=== PATIENT | male | born 1980 | race Caucasian/White ===

== ENCOUNTER → 2016-09-16 | Outpatient (CLI) | payer OTHER ==
[~2016-09-16] MED LIST: ADULT LOW DOSE81 MG OR; APAP500 OR; CLARITIN10 MG PO; FABRAZYME IV; FLONASE NASAL; MEDROLDOSEPACK; MOBIC7.5 MG PO; MULTIVITAMINS PO
[2016-09-16 15:04] VITALS: BP 105/67
== END ==
LOC: OPONC 10:01
DX: E75.21 Fabry (-Anderson) disease (principal)
CPT/HCPCS: 95000; 95001

== ENCOUNTER → 2016-11-13 | Outpatient (CLI) | payer OTHER ==
[2016-11-13 15:00] VITALS: BP 123/65
== END ==
LOC: OPONC 13:10
DX: D50.9 Iron deficiency anemia, unspecified (principal)
CPT/HCPCS: 95000; 95001

== ENCOUNTER → 2016-12-10 | Outpatient (CLI) | payer OTHER ==
[2016-12-10 15:21] VITALS: BP 113/64
== END ==
LOC: OPONC 09:06
DX: E75.21 Fabry (-Anderson) disease (principal)
CPT/HCPCS: 95000

== ENCOUNTER → 2016-12-26 | Outpatient (CLI) | payer OTHER ==
[2016-12-26 16:02] VITALS: BP 117/61
== END ==
LOC: OPONC 07:49
DX: E75.21 Fabry (-Anderson) disease (principal)
CPT/HCPCS: 95000

== ENCOUNTER → 2017-01-17 | Outpatient (CLI) | payer OTHER ==
[2017-01-17 17:41] VITALS: BP 105/62
== END ==
LOC: OPONC 13:05
DX: E75.21 Fabry (-Anderson) disease (principal)
CPT/HCPCS: 95000

== ENCOUNTER → 2017-01-31 | Outpatient (CLI) | payer OTHER ==
[2017-01-31 15:00] VITALS: BP 123/76
== END ==
LOC: OPONC 06:21
DX: E75.21 Fabry (-Anderson) disease (principal)
CPT/HCPCS: 95000

== ENCOUNTER → 2017-02-13 | Outpatient (CLI) | payer OTHER ==
[2017-02-13 15:05] VITALS: BP 106/62
== END ==
LOC: OPONC 11:19
DX: E75.21 Fabry (-Anderson) disease (principal)
CPT/HCPCS: 95000

== ENCOUNTER → 2017-03-03 | Outpatient (CLI) | payer OTHER ==
[2017-03-03 15:29] VITALS: BP 108/76
== END ==
LOC: OPONC 11:47
DX: E75.21 Fabry (-Anderson) disease (principal)
CPT/HCPCS: 95000

== ENCOUNTER → 2017-03-14 | Outpatient (CLI) | payer OTHER ==
[2017-03-14 16:15] VITALS: BP 125/69
== END ==
LOC: OPONC 10:16
DX: D50.9 Iron deficiency anemia, unspecified (principal)
CPT/HCPCS: 95000

== ENCOUNTER → 2017-03-28 | Outpatient (CLI) | payer OTHER ==
[2017-03-28 17:13] VITALS: BP 114/72
== END ==
LOC: OPONC 06:18
DX: E75.21 Fabry (-Anderson) disease (principal)
CPT/HCPCS: 95000

== ENCOUNTER → 2017-04-11 | Outpatient (CLI) | payer OTHER ==
[2017-04-11 14:50] VITALS: BP 99/69
== END ==
LOC: OPONC 06:24
DX: E75.21 Fabry (-Anderson) disease (principal)
CPT/HCPCS: 95000

== ENCOUNTER → 2017-04-24 | Outpatient (CLI) | payer OTHER ==
[2017-04-24 14:15] VITALS: BP 121/64
== END ==
LOC: OPONC 01:25
DX: E75.21 Fabry (-Anderson) disease (principal)
CPT/HCPCS: 95000

== ENCOUNTER → 2017-05-09 | Outpatient (CLI) | payer OTHER ==
[2017-05-09 14:58] VITALS: BP 112/65
== END ==
LOC: OPONC 06:28
DX: E75.21 Fabry (-Anderson) disease (principal)
CPT/HCPCS: 95000

== ENCOUNTER → 2017-05-22 | Outpatient (CLI) | payer OTHER ==
[2017-05-22 15:29] VITALS: BP 125/73
== END ==
LOC: OPONC 08:07
DX: E75.21 Fabry (-Anderson) disease (principal)
CPT/HCPCS: 95000

== ENCOUNTER → 2017-06-05 | Outpatient (CLI) | payer OTHER ==
[2017-06-05 15:05] VITALS: BP 122/77
== END ==
LOC: OPONC 11:19
DX: E75.21 Fabry (-Anderson) disease (principal)
CPT/HCPCS: 95000

== ENCOUNTER → 2017-06-20 | Outpatient (CLI) | payer OTHER ==
[2017-06-20 14:50] VITALS: BP 114/72
== END ==
LOC: OPONC 09:53
DX: E75.21 Fabry (-Anderson) disease (principal)
CPT/HCPCS: 95000

== ENCOUNTER → 2017-07-16 | Outpatient (CLI) | payer OTHER ==
[2017-07-16 14:35] VITALS: BP 126/78
== END ==
LOC: OPONC 06:27
DX: E75.21 Fabry (-Anderson) disease (principal)
CPT/HCPCS: 95000

== ENCOUNTER → 2017-07-31 | Outpatient (CLI) | payer OTHER ==
[2017-07-31 15:00] VITALS: BP 119/73
== END ==
LOC: OPONC 08:39
DX: E75.21 Fabry (-Anderson) disease (principal)
CPT/HCPCS: 95000

== ENCOUNTER → 2017-08-15 | Outpatient (CLI) | payer OTHER ==
[2017-08-15 11:00] VITALS: BP 112/76
== END ==
LOC: OPONC 09:29
DX: E75.21 Fabry (-Anderson) disease (principal)
CPT/HCPCS: 95000

== ENCOUNTER → 2017-09-02 | Outpatient (CLI) | payer OTHER ==
[2017-09-02 15:20] VITALS: BP 105/65
== END ==
LOC: OPONC 10:29
DX: E75.21 Fabry (-Anderson) disease (principal)
CPT/HCPCS: 95000

== ENCOUNTER → 2017-09-11 | Outpatient (CLI) | payer OTHER ==
[2017-09-11 14:50] VITALS: BP 103/68
== END ==
LOC: OPONC 11:32
DX: E75.21 Fabry (-Anderson) disease (principal)
CPT/HCPCS: 95000

== ENCOUNTER → 2017-09-26 | Outpatient (CLI) | payer OTHER ==
[2017-09-26 07:40] VITALS: BP 126/68
== END ==
LOC: OPONC 06:24
DX: E75.21 Fabry (-Anderson) disease (principal)
CPT/HCPCS: 95000

== ENCOUNTER → 2017-10-14 | Outpatient (CLI) | payer OTHER ==
[2017-10-14 12:10] VITALS: BP 110/69
== END ==
LOC: OPONC 11:32
DX: E75.21 Fabry (-Anderson) disease (principal)
CPT/HCPCS: 95000

== ENCOUNTER → 2017-10-23 | Outpatient (CLI) | payer OTHER ==
[2017-10-23 14:40] VITALS: BP 104/60
== END ==
LOC: OPONC 08:19
DX: E75.21 Fabry (-Anderson) disease (principal); R07.1 Chest pain on breathing
CPT/HCPCS: 95000; 95001

== ENCOUNTER → 2017-10-29 | Outpatient (CLI) | payer OTHER | LOC: ULTRA 10:48 | DX: R10.11 Right upper quadrant pain (principal) ==

== ENCOUNTER → 2017-11-05 | Outpatient (CLI) | payer OTHER ==
[2017-11-05 07:30] VITALS: BP 118/63
== END ==
LOC: OPONC 06:10
DX: E75.21 Fabry (-Anderson) disease (principal)
CPT/HCPCS: 95000

== ENCOUNTER → 2017-12-01 | Outpatient (CLI) | payer OTHER ==
[2017-12-01 15:00] VITALS: BP 121/70
== END ==
LOC: OPONC 11:59
DX: E75.21 Fabry (-Anderson) disease (principal)
CPT/HCPCS: 95000

== ENCOUNTER → 2017-12-12 | Outpatient (CLI) | payer OTHER ==
[2017-12-12 13:29] VITALS: BP 127/84
== END ==
LOC: OPONC 00:58
DX: E75.21 Fabry (-Anderson) disease (principal)
CPT/HCPCS: 95000

== ENCOUNTER → 2018-01-15 | Outpatient (CLI) | payer OTHER ==
[2018-01-15 09:10] VITALS: BP 118/69
== END ==
LOC: OPONC 00:45
DX: E75.21 Fabry (-Anderson) disease (principal)
CPT/HCPCS: 95000

== ENCOUNTER → 2018-01-29 | Outpatient (CLI) | payer OTHER ==
[2018-01-29 15:52] VITALS: BP 118/74
== END ==
LOC: OPONC 00:25
DX: E75.21 Fabry (-Anderson) disease (principal)
CPT/HCPCS: 95000

== ENCOUNTER → 2018-02-17 | Outpatient (CLI) | payer OTHER ==
[2018-02-17 15:10] VITALS: BP 122/60
== END ==
LOC: OPONC 06:17
DX: E75.21 Fabry (-Anderson) disease (principal)
CPT/HCPCS: 95000

== ENCOUNTER → 2018-03-03 | Outpatient (CLI) | payer OTHER ==
[2018-03-03 07:45] VITALS: BP 112/69
== END ==
LOC: OPONC 00:41
DX: E75.21 Fabry (-Anderson) disease (principal)
CPT/HCPCS: 95000

== ENCOUNTER → 2018-03-18 | Outpatient (CLI) | payer OTHER ==
[2018-03-18 15:00] VITALS: BP 117/74
== END ==
LOC: OPONC 06:30
DX: E75.21 Fabry (-Anderson) disease (principal)
CPT/HCPCS: 95000

== ENCOUNTER → 2018-04-03 | Outpatient (CLI) | payer OTHER ==
[2018-04-03 14:49] VITALS: BP 114/62
== END ==
LOC: OPONC 08:00
DX: E75.21 Fabry (-Anderson) disease (principal)
CPT/HCPCS: 95000; 95001

== ENCOUNTER → 2018-05-20 | Outpatient (CLI) | payer OTHER ==
[2018-05-20 14:10] VITALS: BP 121/77
== END ==
LOC: OPONC 10:05
DX: E75.21 Fabry (-Anderson) disease (principal)
CPT/HCPCS: 95000; 95001

== ENCOUNTER → 2018-06-08 | Outpatient (CLI) | payer OTHER ==
[2018-06-08 15:45] VITALS: BP 115/70
== END ==
LOC: OPONC 12:03
DX: E75.21 Fabry (-Anderson) disease (principal)
CPT/HCPCS: 95000

== ENCOUNTER → 2018-06-18 | Outpatient (CLI) | payer OTHER ==
[2018-06-18 13:30] VITALS: BP 116/69
== END ==
LOC: OPONC 12:35
DX: E75.21 Fabry (-Anderson) disease (principal)
CPT/HCPCS: 95000; 95001

== ENCOUNTER → 2018-07-03 | Outpatient (CLI) | payer OTHER ==
[2018-07-03 12:28] VITALS: BP 117/51
== END ==
LOC: OPONC 07:15
DX: E75.21 Fabry (-Anderson) disease (principal)
CPT/HCPCS: 95000

== ENCOUNTER → 2018-07-13 | Outpatient (CLI) | payer OTHER ==
[2018-07-13 13:30] VITALS: BP 121/60
== END ==
LOC: OPONC 09:15
DX: E75.21 Fabry (-Anderson) disease (principal)
CPT/HCPCS: 95000; 95001

== ENCOUNTER → 2018-07-31 | Outpatient (CLI) | payer OTHER ==
[2018-07-31 13:30] VITALS: BP 108/65
== END ==
LOC: OPONC 13:07
DX: E75.21 Fabry (-Anderson) disease (principal)
CPT/HCPCS: 95000

== ENCOUNTER → 2018-08-13 | Outpatient (CLI) | payer OTHER ==
[2018-08-13 13:05] VITALS: BP 110/64
--- NOTE | 2018-08-13 14:48 | NUR ---
IN FOR Q2W FABRAZYME INFUSION. REPORTS DOING WELL. NO CONCERNS NOTED. TOLERATED INFUSION WITHOUT INCIDENT. DISMISSED IN STABLE CONDITION.
== END ==
LOC: OPONC 02:54
DX: E75.21 Fabry (-Anderson) disease (principal)
CPT/HCPCS: 95000; 95001

== ENCOUNTER → 2018-08-27 | Outpatient (CLI) | payer OTHER ==
[2018-08-27 13:20] VITALS: BP 133/62
--- NOTE | 2018-08-27 15:00 | NUR ---
HERE FOR Q2W FABRAZYME INFUSION. REPORTS DOING WELL OTHER THAN RECENT UPPER RESP INFECTION, MOSTLY INVOLVING SINUS CONGESTION. TOLERATED TODAY'S INFUSION WITHOUT INCIDENT. DISMISSED IN STABLE CONDITION UPON COMPLETION.
== END ==
LOC: OPONC 10:43
DX: E75.21 Fabry (-Anderson) disease (principal)
CPT/HCPCS: 95000

== ENCOUNTER → 2018-09-15 | Outpatient (CLI) | payer OTHER ==
[2018-09-15 11:50] VITALS: BP 125/76
--- NOTE | 2018-09-15 13:09 | NUR ---
IN FOR Q2WEEK FABRAZYME INFUSION. STATED FEELING WELL. PERIPHERAL IV PLACED. TOLERATED INFUSION WELL WITHOUT INCIDENT. REMOVED IV AND SECURED WITH COBAN. DISMISSED IN GOOD CONDITION.
== END ==
LOC: OPONC 01:15
DX: E75.21 Fabry (-Anderson) disease (principal)
CPT/HCPCS: 95000

== ENCOUNTER → 2018-09-29 | Outpatient (CLI) | payer OTHER ==
[2018-09-29 13:11] VITALS: BP 123/60
--- NOTE | 2018-09-29 14:27 | NUR ---
IN FOR Q2WEEK FABRAZYME INFUSION. STATED FEELING WELL. TOLERATED INFUSION WITHOUT INCIDENT. REMOVED IV AND DISMISSED IN GOOD CONDITION.
== END ==
LOC: OPONC 10:48
DX: E75.21 Fabry (-Anderson) disease (principal)
CPT/HCPCS: 95000

== ENCOUNTER → 2018-10-20 | Outpatient (CLI) | payer OTHER ==
[2018-10-20 14:20] VITALS: BP 112/63
--- NOTE | 2018-10-20 15:24 | NUR ---
IN FOR Q2WEEK FABRAZYME INFUSION. STATED FEELING WELL. TOLERATED INFUSION WELL WITH NO ADVERSE REACTION NOTED. REMOVED IV AND DISMISSED IN GOOD CONDITION.
== END ==
LOC: OPONC 11:41
DX: E75.21 Fabry (-Anderson) disease (principal)
CPT/HCPCS: 95000

== ENCOUNTER → 2018-10-30 | Outpatient (CLI) | payer OTHER ==
[2018-10-30 13:13] VITALS: BP 102/61
--- NOTE | 2018-10-30 14:18 | NUR ---
HERE FOR Q2W FABRAZYME INFUSION. REPORTS DOING WELL, FEELING WELL. TOLERATING INFUSION WITHOUT INCIDENT. WILL CALL WHEN READY TO RETURN.
== END ==
LOC: OPONC 11:50
DX: E75.21 Fabry (-Anderson) disease (principal)
CPT/HCPCS: 95000

== ENCOUNTER → 2018-11-24 | Outpatient (CLI) | payer OTHER ==
[2018-11-24 12:20] VITALS: BP 124/63
--- NOTE | 2018-11-24 14:00 | NUR ---
IN FOR Q2W FABRAZYME INFUSION. REPORTS DOING WELL. MISSED LAST WEEK'S INFUSION HE WAS RECOVERING FROM INFLUENZA. TOLERATED TODAY'S INFUSION WITHOUT INCIDENT. NO S/S REACTION. DISMISSED POST INFUSION IN STABLE CONDITION.
== END ==
LOC: OPONC 11:09
DX: E75.21 Fabry (-Anderson) disease (principal)
CPT/HCPCS: 95000

== ENCOUNTER → 2018-12-03 | Outpatient (CLI) | payer OTHER ==
[2018-12-03 12:05] VITALS: BP 106/57
--- NOTE | 2018-12-03 13:39 | NUR ---
HERE FOR Q2W FABRAZYME INFUSION. IN A BIT EARLY HAD TO MISS A WEEK WHEN SICK IN OCTOBER. PT REPORTS DOING WELL, FEELING WELL. FABRAZYME INFUSED WITHOUT INCIDENT, NO S/S REACTION. DISMISSED IN STABLE CONDITION. WILL CALL WHEN READY TO RETURN.
== END ==
LOC: OPONC 10:52
DX: E75.21 Fabry (-Anderson) disease (principal)
CPT/HCPCS: 95000

== ENCOUNTER → 2018-12-17 | Outpatient (CLI) | payer OTHER ==
[2018-12-17 15:01] VITALS: BP 120/69
--- NOTE | 2018-12-17 15:04 | NUR ---
IN FOR Q2WEEK FABRAZYME INFUSION. STATED FEELING WELL. TOLERATED INFUSION WITHOUT INCIDENT. REMOVED IV AND DISMISSED IN GOOD CONDITION.
== END ==
LOC: OPONC 11:48
DX: E75.21 Fabry (-Anderson) disease (principal)
CPT/HCPCS: 95000

== ENCOUNTER → 2019-01-07 | Outpatient (CLI) | payer OTHER ==
[2019-01-07 14:08] VITALS: BP 117/65
--- NOTE | 2019-01-07 15:30 | NUR ---
IN FOR Q2WEEK FABRAZYME INFUSION. STATED FEELING WELL. TOLERATED INFUSION WITHOUT INCIDENT. REMOVED IV AND DISMISSED IN GOOD CONDITION.
== END ==
LOC: OPONC 11:45
DX: E75.21 Fabry (-Anderson) disease (principal)
CPT/HCPCS: 95000

== ENCOUNTER → 2019-01-21 | Outpatient (CLI) | payer OTHER ==
[~2019-01-21] MED LIST changes: +ZYRTEC10 M5 PO
[2019-01-21 14:25] VITALS: BP 112/67
--- NOTE | 2019-01-21 15:55 | NUR ---
HERE FOR Q2W FABRAZYME INFUSION. REPORTS DOING WELL, FEELING WELL. NO CONCERNS NOTED. TOLERATED INFUSION WITHOUT INCIDENT. DISMISSED IN STABLE CONDITION.
== END ==
LOC: OPONC 12:44
DX: E75.21 Fabry (-Anderson) disease (principal)
CPT/HCPCS: 95000

== ENCOUNTER → 2019-02-04 | Outpatient (CLI) | payer OTHER ==
[2019-02-04 13:20] VITALS: BP 108/66
--- NOTE | 2019-02-04 15:02 | NUR ---
IN FOR Q2W FABRAZYME. REPORTS DOING WELL, FEELING WELL. NO CONCERNS NOTED. TOLERATED THE INFUSION WITHOUT INCIDENT. DISMISSED IN STABLE CONDITION.
== END ==
LOC: OPONC 10:13
DX: E75.21 Fabry (-Anderson) disease (principal)
CPT/HCPCS: 95000

== ENCOUNTER → 2019-02-15 | Outpatient (CLI) | payer OTHER ==
[2019-02-15 15:41] VITALS: BP 117/71
--- NOTE | 2019-02-15 15:44 | NUR ---
IN FOR Q2WEEK FABRAZYME INFUSION FOR FABRY'S DISEASE. STATED FEELING WELL. TOLERATED INFUSION WITHOUT INCIDENT. REMOVED IV AND DISMISSED IN GOOD CONDITION.
== END ==
LOC: OPONC 12:39
DX: E75.21 Fabry (-Anderson) disease (principal)
CPT/HCPCS: 95000

== ENCOUNTER → 2019-03-04 | Outpatient (CLI) | payer OTHER ==
[2019-03-04 17:54] VITALS: BP 112/67
--- NOTE | 2019-03-04 17:57 | NUR ---
IN FOR Q2WEEK FABRAZYME INFUSION FOR FABRY'S DISEASE. STATED FEELING WELL. TOLERATED INFUSION WITHOUT INCIDENT. REMOVED IV AND DISMISSED IN GOOD CONDITION.
== END ==
LOC: OPONC 13:11
DX: E75.21 Fabry (-Anderson) disease (principal)
CPT/HCPCS: 95000

== ENCOUNTER → 2019-03-29 | Outpatient (CLI) | payer OTHER ==
[2019-03-29 13:20] VITALS: BP 118/70
--- NOTE | 2019-03-29 14:55 | NUR ---
HERE FOR Q2W FABRAZYME INFUSION. REPORTS DOING WELL. NO CONCERNS NOTED. TOLERATED INFUSION WITHOUT INCIDENT. DISMISSED IN STABLE CONDITION. WILL CALL WHEN READY TO RETURN.
== END ==
LOC: OPONC 12:06
DX: E75.21 Fabry (-Anderson) disease (principal)
CPT/HCPCS: 95000

== ENCOUNTER → 2019-04-12 | Outpatient (CLI) | payer OTHER ==
[2019-04-12 10:25] VITALS: BP 110/74
--- NOTE | 2019-04-12 11:46 | NUR ---
IN FOR Q2WEEK FABRAZYME INFUSION FOR FABRY'S DISEASE. PATIENT STATED FEELING WELL. DENIED PAIN, SOB. TOLERATED INFUSION WITHOUT INCIDENT. REMOVED IV AND DISMISSED IN GOOD CONDITION.
== END ==
LOC: OPONC 08:53
DX: E75.21 Fabry (-Anderson) disease (principal)
CPT/HCPCS: 95000

== ENCOUNTER → 2019-04-23 | Outpatient (CLI) | payer OTHER ==
[2019-04-23 12:35] VITALS: BP 116/71
--- NOTE | 2019-04-23 14:04 | NUR ---
IN FOR Q2W FABRAZYME INFUSION. REPORTS DOING WELL, FEELING WELL. NO CONCERNS NOTED. TOLERATED INFUSION WITHOUT INCIDENT. DISMISSED IN STABLE CONDITION. WILL CALL WHEN READY TO RETURN.
== END ==
LOC: OPONC 11:43
DX: E75.21 Fabry (-Anderson) disease (principal)
CPT/HCPCS: 95000

== ENCOUNTER → 2019-05-17 | Outpatient (CLI) | payer OTHER ==
[2019-05-17 17:28] VITALS: BP 114/62
--- NOTE | 2019-05-17 17:31 | NUR ---
IN FOR Q2WEEK FABRAZYME INFUSION. STATED FEELING WELL. TOLERATED INFUSION WITHOUT INCIDENT. REMOVED IV AND DISMISSED IN GOOD CONDITION.
== END ==
LOC: OPONC 11:49
DX: E75.21 Fabry (-Anderson) disease (principal)
CPT/HCPCS: 95000

== ENCOUNTER → 2019-05-28 | Outpatient (CLI) | payer OTHER ==
[2019-05-28 15:50] VITALS: BP 105/67
--- NOTE | 2019-05-28 15:52 | NUR ---
IN FOR Q2WEEK FABRAZYME INFUSION FOR FABRY'S DISEASE. STATED FEELING WELL. TOLERATED INFUSION WITHOUT INCIDENT. VITAL SIGNS GOOD. REMOVED IV AND WENT BACK TO WORK IN GOOD CONDITION.
== END ==
LOC: OPONC 10:52
DX: E75.21 Fabry (-Anderson) disease (principal)
CPT/HCPCS: 95000

== ENCOUNTER → 2019-07-02 | Outpatient (CLI) | payer OTHER ==
[2019-07-02 14:50] VITALS: BP 132/55
--- NOTE | 2019-07-02 16:25 | NUR ---
PT HERE FOR Q2W FABRAZYME INFUSION BUT MISSED A COUPLE WEEKS D/T WORK CONFLICTS. REPORTS DOING WELL, NO CONCERNS NOTED. TOLERATED INFUSION WITHOUT INCIDENT. NO S/S REACTION. WILL CALL WHEN READY TO RETURN. DISMISSED IN STABLE CONDITION.
== END ==
LOC: OPONC 12:08
DX: E75.21 Fabry (-Anderson) disease (principal)
CPT/HCPCS: 95000

== ENCOUNTER → 2019-07-26 | Outpatient (CLI) | payer OTHER ==
[2019-07-26 14:10] VITALS: BP 130/70
--- NOTE | 2019-07-26 16:23 | NUR ---
IV THERAPY INFUSION, TOLERATED WELL WITH NO ADVERSE REATIONS. INFUSION COMPLETE AND PERIPHERAL IV REMOVED INTACT.
== END ==
LOC: OPONC 14:05
DX: E75.21 Fabry (-Anderson) disease (principal)
CPT/HCPCS: 95000; 95001

== ENCOUNTER → 2019-08-13 | Outpatient (CLI) | payer OTHER ==
[2019-08-13 15:01] VITALS: BP 106/68
--- NOTE | 2019-08-13 16:06 | NUR ---
IN FOR Q2WEEK FABRAZYME INFUSION. STATED FEELING WELL. TOLERATED INFUSION WITHOUT INCIDENT. REMOVED IV AND DISMISSED IN GOOD CONDITION.
== END ==
LOC: OPONC 08:57
DX: E75.21 Fabry (-Anderson) disease (principal)
CPT/HCPCS: 95000

== ENCOUNTER → 2019-08-27 | Outpatient (CLI) | payer OTHER ==
[2019-08-27 16:18] VITALS: BP 120/70
--- NOTE | 2019-08-27 16:20 | NUR ---
IN FOR Q2WEEK FABRAZYME INFUSION FOR FABRY'S DISEASE. STATED FEELING WELL. TOLERATED INFUSION WITHOUT INCIDENT. REMOVED IV AND DISMISSED IN GOOD CONDITION.
== END ==
LOC: OPONC 12:44
DX: E75.21 Fabry (-Anderson) disease (principal)
CPT/HCPCS: 95000

== ENCOUNTER → 2019-09-17 | Outpatient (CLI) | payer OTHER ==
[2019-09-17 14:03] VITALS: BP 117/79
--- NOTE | 2019-09-17 15:24 | NUR ---
IN FOR Q2WEEK FABRAZYME INFUSION. STATED FEELING WELL. TOLERATED INFUSION WITHOUT INCIDENT. REMOVED IV AND DISMISSED IN GOOD CONDITION.
== END ==
LOC: OPONC 10:12
DX: E75.21 Fabry (-Anderson) disease (principal)
CPT/HCPCS: 95000

== ENCOUNTER → 2019-10-08 | Outpatient (CLI) | payer OTHER ==
[2019-10-08 12:49] VITALS: BP 131/76
--- NOTE | 2019-10-08 15:07 | NUR ---
IN FOR Q2WEEK FABRAZYME INFUSION. STATED FEELING WELL. TOLERATED INFUSION WELL. REMOVED IV AND DISMISSED IN GOOD CONDITION.
== END ==
LOC: OPONC 09:23
DX: E75.21 Fabry (-Anderson) disease (principal)
CPT/HCPCS: 95000

== ENCOUNTER → 2019-10-25 | Outpatient (CLI) | payer OTHER ==
[2019-10-25 15:34] VITALS: BP 117/72
--- NOTE | 2019-10-25 15:37 | NUR ---
IN FOR Q2WEEK FABRAZYME INFUSION. STATED FEELING WELL. TOLERATED INFUSION WITHOUT INCIDENT. TO RETURN IN 2 WEEKS FOR NEXT INFUSION. DISMISSED IN GOOD CONDITION.
== END ==
LOC: OPONC 08:46
DX: E75.21 Fabry (-Anderson) disease (principal)
CPT/HCPCS: 95000

== ENCOUNTER → 2019-11-05 | Outpatient (CLI) | payer OTHER ==
[2019-11-05 14:25] VITALS: BP 129/68
--- NOTE | 2019-11-05 16:14 | NUR ---
IN FOR Q2WEEK FABRAZYME INFUSION. STATED FEELING WELL. TOLERATED INFUSION WITHOUT INCIDENT. DISMISSED IN GOOD CONDITION.
== END ==
LOC: OPONC 12:37
DX: E75.21 Fabry (-Anderson) disease (principal)
CPT/HCPCS: 95000

== ENCOUNTER → 2019-11-22 | Outpatient (CLI) | payer OTHER ==
[2019-11-22 13:15] VITALS: BP 127/80
--- NOTE | 2019-11-22 14:46 | NUR ---
IN FOR Q2WEEK FABRAZYME INFUSION. STATED FEELING WELL. VITAL SIGNS GOOD. TOLERATED INFUSION WITHOUT INCIDENT. DISMISSED IN GOOD CONDITION.
== END ==
LOC: OPONC 11:17
DX: E75.21 Fabry (-Anderson) disease (principal)
CPT/HCPCS: 95000

== ENCOUNTER → 2019-12-10 | Outpatient (CLI) | payer OTHER ==
[2019-12-10 13:01] VITALS: BP 116/76
--- NOTE | 2019-12-10 13:16 | NUR ---
IN FOR Q2WEEK FABRAZYME INFUSION. STATED FEELING WELL. TOLERATED INFUSION WITHOUT INCIDENT. REMOVED IV AND DISMISSED IN GOOD CONDITION.
== END ==
LOC: OPONC 10:43
DX: E75.21 Fabry (-Anderson) disease (principal)
CPT/HCPCS: 95000

== ENCOUNTER → 2019-12-30 | Outpatient (CLI) | payer OTHER ==
[2019-12-30 13:57] VITALS: BP 124/82
--- NOTE | 2019-12-30 13:59 | NUR ---
IN FOR Q2WEEK FABRAZYME INFUSION. STATED FEELING WELL. TOLERATED INFUSION WITHOUT INCIDENT. DISMISSED IN GOOD CONDITION.
== END ==
LOC: OPONC 11:35
DX: E75.21 Fabry (-Anderson) disease (principal)
CPT/HCPCS: 95000

== ENCOUNTER → 2020-01-14 | Outpatient (CLI) | payer OTHER ==
[2020-01-14 13:09] VITALS: BP 124/77
--- NOTE | 2020-01-14 13:58 | NUR ---
IN FOR Q2WEEK FABRAZYME INFUSION. STATED FEELING WELL. TOLERATED INFUSION WITHOUT INCIDENT. DISMISSED IN GOOD CONDITION.
== END ==
LOC: OPONC 11:34
DX: E75.21 Fabry (-Anderson) disease (principal)
CPT/HCPCS: 95000

== ENCOUNTER → 2020-01-28 | Outpatient (CLI) | payer OTHER ==
[2020-01-28 11:45] VITALS: BP 118/76
--- NOTE | 2020-01-28 12:42 | NUR ---
IN FOR Q2WEEK FABRAZYME INFUSION. STATED FEELING WELL. TOLERATED INFUSION WITHOUT INCIDENT. REMOVED IV AND DISMISSED IN GOOD CONDITION.
== END ==
LOC: OPONC 09:03
DX: E75.21 Fabry (-Anderson) disease (principal)
CPT/HCPCS: 95000

== ENCOUNTER → 2020-02-11 | Outpatient (CLI) | payer OTHER ==
[2020-02-11 10:15] VITALS: BP 139/70
[2020-02-11 11:48] VITALS: BP 126/78
--- NOTE | 2020-02-11 12:48 | NUR ---
HERE FOR Q2W FABRAZYME INFUSION. REPORTS DOING WELL, NO CONCERNS. TOLERATED INFUSION WITHOUT INCIDENT, NO S/S REACTION. DISMISSED IN STABLE CONDITION.
== END ==
LOC: OPONC 09:25
PROVIDERS: ATTEND Family Medicine
DX: E75.21 Fabry (-Anderson) disease (principal)
CPT/HCPCS: 95000; 95001

== ENCOUNTER → 2020-02-18 | Outpatient (CLI) | payer OTHER ==
[2020-02-18 11:20] LABS: ABSOLUTE NEUTROPHILS 2.6 thou/uL (1.4-8.2); EOSINOPHILS 1.8 % (0.0-3.0); HEMATOCRIT 43.3 % (42.0-52.0); HEMOGLOBIN 14.8 gm/dL (14.0-18.0); LYMPHOCYTES 37.5 % (24.0-44.0); MCH 29.6 pg (26.0-34.0); MCHC 34.2 g/dL (28.0-37.0); MCV 86.5 fL (80.0-100.0); PLATELET COUNT 249 thou/uL (150-400); POLYS 51.7 % (36.0-66.0); RDW 12.6 % (10.5-14.5); WBC 5.1 thou/uL (4.0-11.0)
[2020-02-18 11:34] LABS: ALBUMIN 4.4 g/dL (3.4-5.0); ANION GAP 6 mmol/L (7-16); BUN 13 mg/dL (7-18); CALCIUM 9.3 mg/dL (8.5-10.1); CHLORIDE 101 mmol/L (98-107); CHOLESTEROL 216 mg/dL (<200); CO2 29 mmol/L (21-32); GLUCOSE 91 mg/dL (74-106); HDL CHOLESTEROL 59 mg/dL (>40); LDL CHOLESTEROL 145 mg/dL (<100); POTASSIUM 4.3 mmol/L (3.5-5.1); SGOT 21 U/L (15-37); SGPT 25 U/L (30-65); SODIUM 136 mmol/L (136-145); TC:HDL 3.7 Ratio (Not establshd); TOTAL BILIRUBIN 0.9 mg/dL (0.2-1.0); TOTAL PROTEIN 7.4 g/dL (6.4-8.2); TRIGLYCERIDE 61 mg/dL (<150); VLDL 12 mg/dL (<40)
[2020-02-18 12:13] LABS: URINE BILIRUBIN NEGATIVE (Negative); URINE BLOOD TRACE (Negative); URINE CLARITY CLEAR; URINE COLOR YELLOW; URINE GLUCOSE-RANDOM* NEGATIVE (Negative); URINE KETONES NEGATIVE (Negative); URINE LEUKOCYTES-REFLEX NEGATIVE (Negative); URINE NITRITE-REFLEX NEGATIVE (Negative); URINE PROTEIN (DIPSTICK) NEGATIVE (Negative); URINE SPECIFIC GRAVITY >= 1.030 (1.005-1.035); URINE UROBILINOGEN 0.2 E.U./dl (0.2-1.0)
== END ==
LOC: LAB 02-17 13:59
PROVIDERS: ATTEND Family Medicine
DX: Z00.00 Encounter for general adult medical examination without abnormal findings (principal)

== ENCOUNTER → 2020-02-22 | Outpatient (CLI) | payer OTHER ==
[2020-02-22 16:02] VITALS: BP 118/63
--- NOTE | 2020-02-22 16:06 | NUR ---
IN FOR Q2WEEK FABRAZYME INFUSION FOR FABRY'S DISEASE. STATED FEELING WELL. TOLERATED INFUSION WITHOUT INCIDENT. REMOVED IV AND DISMISSED IN GOOD CONDITION.
== END ==
LOC: OPONC 10:01
PROVIDERS: ATTEND Family Medicine
DX: E75.21 Fabry (-Anderson) disease (principal)
CPT/HCPCS: 95000

== ENCOUNTER → 2020-03-16 | Outpatient (CLI) | payer OTHER ==
[2020-03-16 16:08] VITALS: BP 117/79
--- NOTE | 2020-03-16 16:11 | NUR ---
IN FOR Q2WEEK FABRAZYME INFUSION. STATED FEELING WELL. IV STARTED IN RAC. TOLERATED INFUSION WITHOUT INCIDENT. REMOVED IV AND DISMISSED IN GOOD CONDITION.
== END ==
LOC: OPONC 09:20
PROVIDERS: ATTEND Family Medicine
DX: E75.21 Fabry (-Anderson) disease (principal)
CPT/HCPCS: 95000

== ENCOUNTER → 2020-04-07 | Outpatient (CLI) | payer OTHER ==
--- NOTE | 2020-04-07 16:22 | NUR ---
IN FOR Q2WEEK FABRAZYME INFUSION. STATED FEELING WELL. IV STARTED AND TOLERATED INFUSION WELL. REMOVED IV AND DISMISSED IN GOOD CONDITION.
== END ==
LOC: OPONC 09:13
PROVIDERS: ATTEND Family Medicine
DX: E75.21 Fabry (-Anderson) disease (principal)
CPT/HCPCS: 95000

== ENCOUNTER → 2020-04-21 | Outpatient (CLI) | payer OTHER ==
[2020-04-21 13:57] VITALS: BP 112/67
--- NOTE | 2020-04-21 15:25 | NUR ---
HERE FOR Q2W FABRAZYME INFUSION. REPORTS DOING WELL. INFUSION COMPLETED WITHOUT INCIDENT. DISMISSED IN STABLE CONDITION. WILL CALL WHEN READY TO SCHEDULE NEXT VISIT.
== END ==
LOC: OPONC 10:35
PROVIDERS: ATTEND Family Medicine
DX: E75.21 Fabry (-Anderson) disease (principal)
CPT/HCPCS: 95000

== ENCOUNTER → 2020-05-02 | Outpatient (CLI) | payer OTHER | LOC: LAB 14:01 | PROVIDERS: ATTEND Nurse Practitioner | DX: Z20.828 Contact with and (suspected) exposure to other viral communicable diseases (principal) ==

== ENCOUNTER → 2020-05-10 | Outpatient (CLI) | payer OTHER ==
[2020-05-10 12:10] VITALS: BP 113/74
--- NOTE | 2020-05-10 13:45 | NUR ---
HERE FOR Q2W PROLASTIN C INFUSION. REPORTS DOING WELL, FEELING WELL. NO CONCERNS NOTED. TOLERATED INFUSION WITHOUT INCIDENT. DISMISSED IN STABLE CONDITION.
== END ==
LOC: OPONC 08:52
PROVIDERS: ATTEND Family Medicine
DX: E75.21 Fabry (-Anderson) disease (principal)
CPT/HCPCS: 95000

== ENCOUNTER → 2020-05-24 | Outpatient (CLI) | payer OTHER ==
[2020-05-24 09:20] VITALS: BP 110/65
--- NOTE | 2020-05-24 10:43 | NUR ---
HERE FOR Q2W FABRAZYME INFUSION. REPORTS DOING WELL, FEELING WELL. NO CONCERNS NOTED. TOLERATED INFUSION WITHOUT INCIDENT.
== END ==
LOC: OPONC 09:27
PROVIDERS: ATTEND Family Medicine
DX: E75.21 Fabry (-Anderson) disease (principal)
CPT/HCPCS: 95000

== ENCOUNTER → 2020-06-14 | Outpatient (CLI) | payer OTHER ==
[2020-06-14 13:15] VITALS: BP 110/66
--- NOTE | 2020-06-14 14:58 | NUR ---
HERE FOR Q2W FABRAZYME INFUSION. REPORTS DOING WELL, FEELING WELL. NO CONCERNS NOTED. TOLERATED INFUSION WITHOUT INCIDENT. DISMISSED IN STABLE CONDITION.
== END ==
LOC: OPONC 12:49
PROVIDERS: ATTEND Family Medicine
DX: E75.21 Fabry (-Anderson) disease (principal)
CPT/HCPCS: 95000

== ENCOUNTER → 2020-06-28 | Outpatient (CLI) | payer OTHER ==
[2020-06-28 10:15] VITALS: BP 116/68
--- NOTE | 2020-06-28 11:48 | NUR ---
HERE FOR Q2W FABRAZYME INFUSION. REPORTS DOING WELL. TOLERATED INFUSION WITHOUT INCIDENT. DISMISSED IN STABLE CONDITION.
== END ==
LOC: OPONC 06:36
PROVIDERS: ATTEND Family Medicine
DX: E75.21 Fabry (-Anderson) disease (principal)
CPT/HCPCS: 95000

== ENCOUNTER → 2020-07-12 | Outpatient (CLI) | payer OTHER ==
[2020-07-12 09:05] VITALS: BP 115/72
--- NOTE | 2020-07-12 11:08 | NUR ---
HERE FOR Q2W FABRAZYME INFUSION. REPORTS DOING WELL, FEELING WELL. NO CONCERNS NOTED. TOLERATED INFUSION WITHOUT INCIDENT. DISMISSED IN STABLE CONDITION.
== END ==
LOC: OPONC 07:46
PROVIDERS: ATTEND Family Medicine
DX: E75.21 Fabry (-Anderson) disease (principal)
CPT/HCPCS: 95000; 95001

== ENCOUNTER → 2020-07-26 | Outpatient (CLI) | payer OTHER ==
[2020-07-26 12:57] VITALS: BP 128/71
--- NOTE | 2020-07-26 14:30 | NUR ---
HERE FOR Q2W FABRAZYME INFUSION. REPORTS DOING WELL, FEELING WELL. NO NEW CONCERNS. TOLERATED INFUSION WITHOUT INCIDENT. WILL CALL WHEN READY TO RETURN.
== END ==
LOC: OPONC 12:02
PROVIDERS: ATTEND Family Medicine
DX: E75.21 Fabry (-Anderson) disease (principal)
CPT/HCPCS: 95000; 95001

== ENCOUNTER → 2020-08-09 | Outpatient (CLI) | payer OTHER ==
[2020-08-09 09:46] VITALS: BP 115/72
--- NOTE | 2020-08-09 11:11 | NUR ---
HERE FOR Q2W FABRAZYME INFUSION. REPORTS DOING WELL. NO CONCERNS NOTED. TOLERATED INFUSION WITHOUT INCIDENT. DISMISSED IN STABLE CONDITION.
== END ==
LOC: OPONC 11:13
PROVIDERS: ATTEND Family Medicine
DX: E75.21 Fabry (-Anderson) disease (principal)
CPT/HCPCS: 95000

== ENCOUNTER → 2020-08-28 | Outpatient (CLI) | payer OTHER ==
[2020-08-28 09:10] VITALS: BP 101/67
--- NOTE | 2020-08-28 13:12 | NUR ---
HERE FOR Q2W FABRAZYME INFUSION. REPORTS DOING WELL, FEELING WELL. NO CONCERNS NOTED. TOLERATED INFUSION WITHOUT INCIDENT. DISMISSED IN STABLE CONDITION.
== END ==
LOC: OPONC 08:06
PROVIDERS: ATTEND Family Medicine
DX: E75.21 Fabry (-Anderson) disease (principal)
CPT/HCPCS: 95000

== ENCOUNTER → 2020-09-15 | Outpatient (CLI) | payer OTHER ==
[2020-09-15 15:04] VITALS: BP 112/71
--- NOTE | 2020-09-15 15:06 | NUR ---
IN FOR Q2WEEK FABRAZYME INFUSION FOR FABRY'S DISEASE. PATIENT STATED FEELING WELL. VITAL SIGNS GOOD. TOLERATED INFUSION WITHOUT INCIDENT. REMOVED IV AND DISMISSED IN GOOD CONDITION.
== END ==
LOC: OPONC 09:33
PROVIDERS: ATTEND Family Medicine
DX: E75.21 Fabry (-Anderson) disease (principal)
CPT/HCPCS: 95000

== ENCOUNTER → 2020-09-29 | Outpatient (CLI) | payer OTHER ==
[2020-09-29 11:30] VITALS: BP 123/76
--- NOTE | 2020-09-29 13:00 | NUR ---
IN FOR Q2 WEEK FABRAZYME INFUSION FOR FABRY'S DISEASE. STATED FEELING WELL. TOLERATED INFUSION WITHOUT INCIDENT. REMOVED IV AND DISMISSED IN GOOD CONDITION.
== END ==
LOC: OPONC 08:45
PROVIDERS: ATTEND Family Medicine
DX: E75.21 Fabry (-Anderson) disease (principal)
CPT/HCPCS: 95000

== ENCOUNTER → 2020-10-13 | Outpatient (CLI) | payer OTHER ==
[2020-10-13 14:15] VITALS: BP 124/76
--- NOTE | 2020-10-13 15:37 | NUR ---
IN FOR Q2WEEK FABRAZYME INFUSION FOR FABRY'S DISEASE. STATED FEELING WELL. IV PLACED IN RAC. TOLERATED INFUSION WITHOUT INCIDENT. REMOVED IV AND DISMISSED IN GOOD CONDITION.
== END ==
LOC: OPONC 11:52
PROVIDERS: ATTEND Family Medicine
DX: E75.21 Fabry (-Anderson) disease (principal)
CPT/HCPCS: 95000

== ENCOUNTER → 2020-11-13 | Outpatient (CLI) | payer OTHER ==
[2020-11-13 12:53] VITALS: BP 122/62
--- NOTE | 2020-11-13 13:53 | NUR ---
PATIENT IN FOR FABRAZYME INFUSION. TOLERATED INFUSION WITHOUT ADVERSE REACTION. DC AMBULATORY IN STABLE CONDITION.
== END ==
LOC: OPONC 11:05
PROVIDERS: ATTEND Family Medicine
DX: E75.21 Fabry (-Anderson) disease (principal)
CPT/HCPCS: 95000

== ENCOUNTER → 2020-11-22 | Outpatient (CLI) | payer OTHER ==
[2020-11-22 11:35] VITALS: BP 142/81
--- NOTE | 2020-11-22 13:16 | NUR ---
HERE FOR Q2W FABRAZYME INFUSION. REPORTS DOING WELL, FEELING WELL. NO CONCERNS NOTED. TOLERATED INFUSION WITHOUT INCIDENT. DISMISSED IN STABLE CONDITION. WILL CALL WHEN READY TO RETURN.
== END ==
LOC: OPONC 10:19
PROVIDERS: ATTEND Family Medicine
DX: E75.21 Fabry (-Anderson) disease (principal)
CPT/HCPCS: 95000

== ENCOUNTER → 2020-12-04 | Outpatient (CLI) | payer OTHER ==
[2020-12-04 12:38] VITALS: BP 119/79
--- NOTE | 2020-12-04 12:41 | NUR ---
IN FOR Q2WEEK FABRAZYME INFUSION FOR FABRY'S DISEASE. STATED FEELING WELL. IV PLACED IN LAC WITHOUT DIFFICULTY. TOLERATED INFUSION WITHOUT INCIDENT. REMOVED IV AND DISMISSED IN GOOD CONDITION.
== END ==
LOC: OPONC 10:04
PROVIDERS: ATTEND Family Medicine
DX: E75.21 Fabry (-Anderson) disease (principal)
CPT/HCPCS: 95000

== ENCOUNTER → 2020-12-18 | Outpatient (CLI) | payer OTHER | LOC: LAB 11:54 | PROVIDERS: ATTEND Nurse Practitioner | DX: R05 Cough (principal); R50.9 Fever, unspecified; J02.9 Acute pharyngitis, unspecified; Z20.822 Contact with and (suspected) exposure to COVID-19 ==

== ENCOUNTER → 2020-12-27 | Outpatient (CLI) | payer OTHER ==
[2020-12-27 13:08] VITALS: BP 122/72
--- NOTE | 2020-12-27 14:45 | NUR ---
HERE FOR Q2W FABRAZYME INFUSION. REPORTS DOING WELL, FEELING WELL. NO CONCERNS NOTED. TOLERATED INFUSION WITHOUT INCIDENT. DISMISSED IN STABLE CONDITION. WILL CALL WHEN READY TO RETURN.
== END ==
LOC: OPONC 10:46
PROVIDERS: ATTEND Family Medicine
DX: E75.21 Fabry (-Anderson) disease (principal)
CPT/HCPCS: 95000; 95001

== ENCOUNTER → 2021-01-10 | Outpatient (CLI) | payer OTHER ==
[2021-01-10 16:32] VITALS: BP 114/73
--- NOTE | 2021-01-10 16:38 | NUR ---
ARRIVED AMBULATORY FOR FABRYZYME INFUSION. STATES HE IS FEELING WELL. DENIES PAIN AND VOICES NO COMPLAINTS. INFUSION TOLERATED WELL AND PATIENT DC IN STABLE CONDITION. WILL CALL [facility] FOR NEXT INFUSION.
== END ==
LOC: OPONC 12:18
PROVIDERS: ATTEND Family Medicine
DX: E75.21 Fabry (-Anderson) disease (principal)
CPT/HCPCS: 95000; 95001

== ENCOUNTER → 2021-02-07 | Outpatient (CLI) | payer OTHER ==
[2021-02-07 10:00] VITALS: BP 116/79
--- NOTE | 2021-02-07 11:20 | NUR ---
HERE FOR HIS Q2W FABRAZYME INFUSION. REPORTS DOING VERY WELL. NO CONCERNS NOTED. TOLERATED INFUSION WITHOUT INCIDENT. DISMISSED IN STABLE CONDITION. WILL CALL TO SCHEDULED WHEN ABLE TO RETURN.
== END ==
LOC: OPONC 10:30
PROVIDERS: ATTEND Family Medicine
DX: E75.21 Fabry (-Anderson) disease (principal)
CPT/HCPCS: 95000; 95001

== ENCOUNTER → 2021-02-21 | Outpatient (CLI) | payer OTHER ==
[2021-02-21 11:00] VITALS: BP 116/73
--- NOTE | 2021-02-21 17:20 | NUR ---
HERE FOR Q2W FABRAZYME INFUSION. REPORTS DOING WELL. TOLERATED INFUSION WITHOUT INCIDENT. DISMISSED IN STABLE CONDITION.
== END ==
LOC: OPONC 12:57
PROVIDERS: ATTEND Family Medicine
DX: E75.21 Fabry (-Anderson) disease (principal)
CPT/HCPCS: 95000; 95001

== ENCOUNTER → 2021-02-27 | Outpatient (CLI) | payer OTHER | LOC: MRI 07:51 | PROVIDERS: ATTEND Family Medicine | DX: M54.6 Pain in thoracic spine (principal) ==

== ENCOUNTER → 2021-03-07 | Outpatient (CLI) | payer OTHER ==
[2021-03-07 09:25] VITALS: BP 114/70
--- NOTE | 2021-03-07 10:55 | NUR ---
HERE FOR Q2W FABRAZYME INFUSION. REPORTS DOING WELL, FEELING WELL OTHER THAN SOME NEWER LOW BACK PAIN ISSUES AND ONGOING L SHOULDER DISCOMFORT. SAW DR. CASTRO FOR BOTH WITH IMAGING DONE. PLANS TO PURSUE PHYSICAL THERAPY. TOLERATED TODAY'S INFUSION WITHOUT INCIDENT. DISMISSED IN STABLE CONDITION. WILL CALL WHEN READY TO RESCHEDULE.
== END ==
LOC: OPONC 08:28
PROVIDERS: ATTEND Family Medicine
DX: E75.21 Fabry (-Anderson) disease (principal)
CPT/HCPCS: 95000; 95001

== ENCOUNTER → 2021-03-09 | Outpatient (CLI) | payer OTHER ==
[2021-03-09 09:29] LABS: ABSOLUTE NEUTROPHILS 3.3 thou/uL (1.4-8.2); BASOPHILS 0.6 % (0.0-2.0); EOSINOPHILS 2.1 % (0.0-3.0); HEMATOCRIT 39.3 % (42.0-52.0); HEMOGLOBIN 13.5 gm/dL (14.0-18.0); LYMPHOCYTES 28.8 % (24.0-44.0); MCH 29.6 pg (26.0-34.0); MCHC 34.3 g/dL (28.0-37.0); MCV 86.1 fL (80.0-100.0); MONOCYTES 7.2 % (1.0-8.0); PLATELET COUNT 248 thou/uL (150-400); POLYS 61.3 % (36.0-66.0); RBC 4.56 mil/uL (4.50-6.00); RDW 12.7 % (10.5-14.5); WBC 5.3 thou/uL (4.0-11.0)
[2021-03-09 09:31] LABS: URINE BILIRUBIN NEGATIVE (Negative); URINE BLOOD NEGATIVE (Negative); URINE CLARITY CLEAR; URINE COLOR YELLOW; URINE GLUCOSE-RANDOM* NEGATIVE (Negative); URINE KETONES NEGATIVE (Negative); URINE LEUKOCYTES-REFLEX NEGATIVE (Negative); URINE NITRITE-REFLEX NEGATIVE (Negative); URINE PROTEIN (DIPSTICK) NEGATIVE (Negative); URINE SPECIFIC GRAVITY <= 1.005 (1.005-1.035); URINE UROBILINOGEN 0.2 E.U./dl (0.2-1.0)
[2021-03-09 10:11] LABS: ALBUMIN 4.1 g/dL (3.4-5.0); ANION GAP 6 mmol/L (7-16); BUN 15 mg/dL (7-18); CALCIUM 9.3 mg/dL (8.5-10.1); CHLORIDE 105 mmol/L (98-107); CHOLESTEROL 217 mg/dL (<200); CO2 29 mmol/L (21-32); GLUCOSE 101 mg/dL (74-106); HDL CHOLESTEROL 62 mg/dL (>40); LDL CHOLESTEROL 141 mg/dL (<100); POTASSIUM 4.7 mmol/L (3.5-5.1); SGOT 20 U/L (15-37); SGPT 18 U/L (30-65); SODIUM 140 mmol/L (136-145); TC:HDL 3.5 Ratio (Not establshd); TOTAL BILIRUBIN 0.7 mg/dL (0.2-1.0); TOTAL PROTEIN 7.3 g/dL (6.4-8.2); TRIGLYCERIDE 70 mg/dL (<150); VLDL 14 mg/dL (<40)
== END ==
LOC: LAB 08:43
PROVIDERS: ATTEND Family Medicine
DX: Z00.00 Encounter for general adult medical examination without abnormal findings (principal); M54.5 Low back pain; M25.551 Pain in right hip

== ENCOUNTER → 2021-03-21 | Outpatient (CLI) | payer OTHER ==
[2021-03-21 10:45] VITALS: BP 126/77
--- NOTE | 2021-03-21 13:15 | NUR ---
PT HERE FOR IV FABRAZYME INFUSION. DENIES ANY PAIN. STATES HE SAW A PHYSICAL THERAPIST FOR HIS BACK PAIN WITH MILD RELIEF. DENIES ANY OTHER CHANGES OR CONCERNS. TOLERATED INFUSION WITH NO COMPLICATIONS. PT WILL CALL IN TWO WEEKS TO SCHEDULE NEXT APPT. LEFT UNIT IN STABLE CONDITION.
== END ==
LOC: BC 09:05 → OPONC 12:00 → EDSTATUS 12:37 → OPONC 17:26
PROVIDERS: ATTEND Family Medicine
DX: E75.21 Fabry (-Anderson) disease (principal)
CPT/HCPCS: 95000; 95001

== ENCOUNTER → 2021-04-09 | Outpatient (CLI) | payer OTHER ==
[2021-04-09 13:38] VITALS: BP 123/69
--- NOTE | 2021-04-09 14:41 | NUR ---
ARRIVED AMBULATORY FOR FABRYZMYE INFUSION. NO NEW COMPLAINTS. TOLERATED INFUSION WITHOUT ADVERSE REACTION. DC AMBULATORY IN STABLE CONDITION FOLLOWING INFUSION. WILL CALL FOR NEXT APPOINTMENT.
== END ==
LOC: OPONC 09:29 → EDSTATUS 14:04 → OPONC 14:06
PROVIDERS: ATTEND Family Medicine
DX: E75.21 Fabry (-Anderson) disease (principal)
CPT/HCPCS: 95000; 95001

== ENCOUNTER → 2021-04-23 | Outpatient (CLI) | payer OTHER ==
[2021-04-23 15:08] VITALS: BP 117/71
== END ==
LOC: OPONC 10:42
PROVIDERS: ATTEND Family Medicine
DX: E75.21 Fabry (-Anderson) disease (principal)
CPT/HCPCS: 95000; 95001

== ENCOUNTER → 2021-05-11 | Outpatient (CLI) | payer OTHER ==
[2021-05-11 10:00] VITALS: BP 119/74
--- NOTE | 2021-05-11 13:46 | NUR ---
HERE FOR Q2W FABRAZYME INFUSION. REPORTS DOING WELL. NO CONCERNS NOTED. TOLERATED INFUSION WITHOUT INCIDENT. DISMISSED IN STABLE CONDITION. WILL CALL WHEN ABLE TO SET UP NEXT APPT.
== END ==
LOC: OPONC 08:18
PROVIDERS: ATTEND Family Medicine
DX: E75.21 Fabry (-Anderson) disease (principal)
CPT/HCPCS: 95000; 95001

== ENCOUNTER → 2021-05-25 | Outpatient (CLI) | payer OTHER ==
[2021-05-25 12:45] VITALS: BP 118/66
--- NOTE | 2021-05-25 14:08 | NUR ---
IN FOR Q2W FABRAZYME. REPORTS DOING WELL, FEELING WELL. INFUSION COMPLETED WITHOUT INCIDENT. WILL CALL WHEN READY FOR RETURN APPT.
== END ==
LOC: OPONC 09:17
PROVIDERS: ATTEND Family Medicine
DX: E75.21 Fabry (-Anderson) disease (principal)
CPT/HCPCS: 95000; 95001

== ENCOUNTER → 2021-06-13 | Outpatient (CLI) | payer OTHER ==
[2021-06-13 14:15] VITALS: BP 110/73
--- NOTE | 2021-06-13 16:03 | NUR ---
PT HERE FOR Q2 WEEK FABRAZYME INFUSION. NO NEW SYMPTOMS TO REPORT. IV STARTED IN LEFT A/C. PT TOLERATED INFUSION WITH NO COMPLICATIONS. IV DISCONTINUED. LEFT UNIT IN STABLE CONDITION. WILL CALL TO SCHEDULE NEXT APPT.
== END ==
LOC: OPONC 14:44
PROVIDERS: ATTEND Family Medicine
DX: E75.21 Fabry (-Anderson) disease (principal)
CPT/HCPCS: 95000; 95001

== ENCOUNTER → 2021-06-27 | Outpatient (CLI) | payer OTHER ==
[2021-06-27 13:06] VITALS: BP 119/73
--- NOTE | 2021-06-27 14:50 | NUR ---
HERE FOR Q2W FABRAZYME INFUSION. REPORTS DOING WELL. NO CONCERNS NOTED. TOLERATED INFUSION WITHOUT INCIDENT, NO S/S REACTION. DISMISSED IN STABLE CONDITION. SCHEDULED TO RETURN IN 2 WEEKS.
== END ==
LOC: OPONC 10:01
PROVIDERS: ATTEND Family Medicine
DX: E75.21 Fabry (-Anderson) disease (principal)
CPT/HCPCS: 95000; 95001

== ENCOUNTER → 2021-07-11 | Outpatient (CLI) | payer OTHER ==
--- NOTE | 2021-07-11 14:55 | NUR ---
HERE FOR Q2W FABRAZYME INFUSION. REPORTS DOING WELL, FEELING WELL. NO CONCERNS NOTED. TOLERATED INFUSION WITHOUT INCIDENT. DISMISSED IN STABLE CONDITION. WILL CALL WHEN READY TO RETURN.
== END ==
LOC: OPONC 10:27
PROVIDERS: ATTEND Family Medicine
DX: E75.21 Fabry (-Anderson) disease (principal)
CPT/HCPCS: 95000

== ENCOUNTER → 2021-07-27 | Outpatient (CLI) | payer OTHER ==
[2021-07-27 11:20] VITALS: BP 125/65
--- NOTE | 2021-07-27 15:55 | NUR ---
HERE FOR Q2W FABRAZYME INFUSION. REPORTS DOING WELL. NO CONCERNS NOTED. TOLERATED INFUSION WITHOUT INCIDENT. DISMISSED IN STABLE CONDITION. WILL CALL WHEN READY TO RETURN
== END ==
LOC: OPONC 15:54
PROVIDERS: ATTEND Family Medicine
DX: E75.21 Fabry (-Anderson) disease (principal)
CPT/HCPCS: 95000

== ENCOUNTER → 2021-08-10 | Outpatient (CLI) | payer OTHER ==
[2021-08-10 16:22] VITALS: BP 112/59
--- NOTE | 2021-08-10 16:24 | NUR ---
HERE FOR FABRAZYME. TOLERATED INFUSION WITHOUT ADVERSE REACTION. DC IN STABLE CONDITION FOLLOWING COMPLETION OF INFUSION.
== END ==
LOC: OPONC 10:26
PROVIDERS: ATTEND Family Medicine
DX: E75.21 Fabry (-Anderson) disease (principal)
CPT/HCPCS: 95000; 95001

== ENCOUNTER → 2021-09-03 | Outpatient (CLI) | payer OTHER ==
[2021-09-03 14:15] VITALS: BP 127/67
--- NOTE | 2021-09-03 16:12 | NUR ---
PT HERE FOR Q2 WEEK FABRAZYME INFUSION. STATES HE RECENTLY RECOVERED FROM COVID. REPORTS HE HAD A FEVER AND COLD-LIKE SYMPTOMS THAT WERE NOT SEVERE AND ONLY LASTED A FEW DAYS. REPORTS FEELING GOOD TODAY. NO C/O PAIN OR OTHER NOTABLE SYMPTOMS. IV STARTED IN L AC. FABRAZYME ADMINISTERED PER ORDER WITH WHITE FILTER, AT 75 ML/HR. PT TOLERATED INFUSION WITH NO COMPLICATIONS. REMOVED IV. LEFT UNIT IN STABLE CONDITION. WILL CALL TO SCHEDULE NEXT APPT.
== END ==
LOC: OPONC 11:40
PROVIDERS: ATTEND Family Medicine
DX: E75.21 Fabry (-Anderson) disease (principal)
CPT/HCPCS: 95000; 95001

== ENCOUNTER → 2021-09-18 | Outpatient (CLI) | payer OTHER ==
[2021-09-18 14:10] VITALS: BP 116/73
--- NOTE | 2021-09-18 15:50 | NUR ---
HERE FOR Q2W FABRAZYME INFUSION. REPORTS DOING WELL. NO CONCERNS NOTED. TOLERATED INFUSION WITHOUT INCIDENT. DISMISSED IN STABLE CONDITION. WILL CALL WHEN READY TO RESCHEDULE.
== END ==
LOC: OPONC 11:21
PROVIDERS: ATTEND Family Medicine
DX: E75.21 Fabry (-Anderson) disease (principal)
CPT/HCPCS: 95000; 95001

== ENCOUNTER → 2021-10-10 | Outpatient (CLI) | payer OTHER ==
[2021-10-10 14:30] VITALS: BP 125/75
--- NOTE | 2021-10-10 16:17 | NUR ---
HERE FOR Q2W FABRAZYME INFUSION. REPORTS DOING WELL. ONLY NEW THING HE HAS NOTICED IS RANDOM EPISODES OF NUMBNESS OF BOTH RIGHT AND LEFT ARMS. HE IS NOT SURE WHAT IS TRIGGERING THIS AND WILL CONTINUE TO MONITOR IT. TOLERATED TODAY'S INFUSION WITHOUT INCIDENT. DISMISSED IN STABLE CONDITION. WILL CALL WHEN READY TO RETURN.
== END ==
LOC: OPONC 11:59
PROVIDERS: ATTEND Family Medicine
DX: E75.21 Fabry (-Anderson) disease (principal)
CPT/HCPCS: 95000